=== PATIENT | male | born 1940 | race Asian ===

== ENCOUNTER → 2016-08-23 | Outpatient (CLI) | payer MEDICARE, OTHER ==
[~2016-08-23] MED LIST: ACET-784 PO; ALLO300 PO; AMLO2.5T PO; ASCO-360 PO; BENZ-26 PO; ERGO500050 PO; FINA5TAB41 PO; HYDR25 PO; INSLAN SQ; INSREG SQ; LEVO125T4 PO; LORA10TA7 PO; LOSA50TA37 PO; METF500T4 PO; MULT-1249 PO; SIMV20 PO; TAMS0.4C32 PO
[2016-08-23 10:54] LABS: CREATININE 2.22 mg/dL (0.60-1.30); POTASSIUM 4.6 mmol/L (3.5-5.1)
[2016-08-23 10:55] LABS: HEMOGLOBIN A1C 7.4 % (4.5-6.2)
== END | disposition home or self-care (01) ==
LOC: LABPV 09:00
PROVIDERS: ATTEND Internal Medicine Nephrology
DX: I12.9 Hypertensive chronic kidney disease with stage 1 through stage 4 chronic kidney disease, or unspecified chronic kidney disease (principal); N18.9 Chronic kidney disease, unspecified; E11.29 Type 2 diabetes mellitus with other diabetic kidney complication; E03.9 Hypothyroidism, unspecified; E78.5 Hyperlipidemia, unspecified
CPT/HCPCS: 83036; 84156

== ENCOUNTER → 2016-10-24 | Outpatient (CLI) | payer MEDICARE, OTHER ==
[~2016-10-24] MED LIST changes: -HYDR25 PO; +HYDR25TA84 PO; +SIMV-260 PO; -SIMV20 PO
[2016-10-24 11:46] LABS: HEMATOCRIT 32.1 % (41-53); HEMOGLOBIN 10.3 g/dL (13.5-17.5)
[2016-10-24 12:15] LABS: CALCIUM, TOTAL 8.8 mg/dL (8.8-10.5); CREATININE 2.3 mg/dL (0.60-1.30); POTASSIUM 5.3 mmol/L (3.5-5.1); THYROID STIMULATING HORMONE 0.1 uIU/mL (0.36-3.74)
== END | disposition home or self-care (01) ==
LOC: LABPV 10:53
PROVIDERS: ATTEND Internal Medicine Nephrology
DX: E11.22 Type 2 diabetes mellitus with diabetic chronic kidney disease (principal); N18.3 Chronic kidney disease, stage 3 (moderate); E03.9 Hypothyroidism, unspecified
CPT/HCPCS: 84443; 85014; 85018

== ENCOUNTER → 2019-02-25 | Outpatient (CLI) | payer MEDICARE, OTHER ==
[~2019-02-25] MED LIST changes: -AMLO2.5T PO; +AMLO2.5T4 PO; -BENZ-26 PO; +BENZ-51 PO; -LOSA50TA37 PO; +LOSA50TA64 PO; +METF-960 PO; -METF500T4 PO
[2019-02-25 15:23] LABS: HEMATOCRIT 28.5 % (41-53); HEMOGLOBIN 9.2 g/dL (13.5-17.5)
[2019-02-25 15:56] LABS: ALBUMIN 2.9 g/dL (3.4-5.0); BILIRUBIN,TOTAL 0.4 mg/dL (0.1-1.0); CALCIUM, TOTAL 8.7 mg/dL (8.8-10.5); CREATININE 5.01 mg/dL (0.60-1.30); POTASSIUM 4.3 mmol/L (3.5-5.1); THYROID STIMULATING HORMONE 9.34 uIU/mL (0.36-3.74); TOTAL PROTEIN, SERUM 6.3 g/dL (6.4-8.2)
[2019-02-25 16:01] LABS: CREATININE,URINE RANDOM 49.5 mg/dL (30.0-125.0); PROTEIN,URINE RANDOM 261 mg/dL (0-11.9)
[2019-02-25 17:31] LABS: APPEARANCE,URINE CLEAR (CLEAR)
[2019-02-25 17:32] LABS: BILIRUBIN,URINE NEGATIVE (NEGATIVE); GLUCOSE, URINE (UA) 100 mg/dL (NEGATIVE); KETONES,URINE NEGATIVE (NEGATIVE); LEUKOCYTE ESTERASE ,URINE NEGATIVE (NEGATIVE); NITRATE,URINE NEGATIVE (NEGATIVE); OCCULT BLOOD,URINE NEGATIVE (NEGATIVE); PROTEIN,URINE SEE CONFIRM (NEGATIVE); UROBILINOGEN,URINE 0.2 mg/dL (<=1.0)
[2019-02-25 17:34] LABS: RBC,URINE None Seen /HPF (0-2); SULFOSALICYLIC ACID,URINE 4+ (Negative)
[2019-02-25 17:35] LABS: BACTERIA,URINE None Seen /HPF (None Seen); SQUAMOUS EPITHELIAL CELL,UR Few /LPF (None Seen); WBC,URINE 0-2 /HPF (0-5)
== END | disposition home or self-care (01) ==
LOC: LABPV 14:29
PROVIDERS: ATTEND Internal Medicine Nephrology
DX: E55.9 Vitamin D deficiency, unspecified (principal); E11.22 Type 2 diabetes mellitus with diabetic chronic kidney disease; I12.9 Hypertensive chronic kidney disease with stage 1 through stage 4 chronic kidney disease, or unspecified chronic kidney disease; N18.9 Chronic kidney disease, unspecified; D63.1 Anemia in chronic kidney disease; E03.9 Hypothyroidism, unspecified
CPT/HCPCS: 82306; 82570; 83970; 84100; 84156; 84443; 85014; 85018

== ENCOUNTER → 2019-05-03 | Outpatient (CLI) | payer MEDICARE, OTHER ==
[~2019-05-03] MED LIST changes: +TAMS-13 PO; -TAMS0.4C32 PO
[2019-05-03 10:19] LABS: HEMATOCRIT 26.7 % (41-53); HEMOGLOBIN 8.9 g/dL (13.5-17.5)
[2019-05-03 10:41] LABS: CALCIUM, TOTAL 8.5 mg/dL (8.8-10.5); CHOL/HDL RATIO 3.1 (4.2-7.3); CREATININE 5.25 mg/dL (0.60-1.30); POTASSIUM 4.6 mmol/L (3.5-5.1); THYROID STIMULATING HORMONE 9.86 uIU/mL (0.36-3.74)
[2019-05-03 12:43] LABS: CREATININE,URINE 43.1 mg/dL (30.0-125.0)
[2019-05-03 12:47] LABS: CREATININE,SERUM FOR CRCL 5.25 mg/dL (0.60-1.30)
== END | disposition home or self-care (01) ==
LOC: LABPV 08:48
PROVIDERS: ATTEND Internal Medicine Nephrology
DX: E78.5 Hyperlipidemia, unspecified (principal); E03.9 Hypothyroidism, unspecified; D63.1 Anemia in chronic kidney disease; E11.22 Type 2 diabetes mellitus with diabetic chronic kidney disease; I12.0 Hypertensive chronic kidney disease with stage 5 chronic kidney disease or end stage renal disease; N18.5 Chronic kidney disease, stage 5
CPT/HCPCS: 81050; 82575; 83970; 84156; 84300; 84443; 85014; 85018

== ENCOUNTER → 2019-06-28 | Outpatient (CLI) | payer MEDICARE, OTHER ==
[~2019-06-28] MED LIST changes: +FINA-27 PO; -FINA5TAB41 PO; +LOSA-88 PO; -LOSA50TA64 PO
[2019-06-28 11:01] LABS: HEMATOCRIT 25.9 % (41-53); HEMOGLOBIN 8.5 g/dL (13.5-17.5)
[2019-06-28 11:14] LABS: CALCIUM, TOTAL 8.6 mg/dL (8.8-10.5); CREATININE 4.41 mg/dL (0.60-1.30); PHOSPHORUS 4.6 mg/dL (2.5-4.9); POTASSIUM 4.5 mmol/L (3.5-5.1)
[2019-06-28 11:34] LABS: FOLATE SERUM 15.6 ng/mL (5.4-)
[2019-06-28 12:52] LABS: % IRON SATURATION 28.9 % (30-44)
== END | disposition home or self-care (01) ==
LOC: LABPV 08:15
PROVIDERS: ATTEND Internal Medicine Nephrology
DX: N18.5 Chronic kidney disease, stage 5 (principal); D63.1 Anemia in chronic kidney disease; E55.9 Vitamin D deficiency, unspecified
CPT/HCPCS: 82306; 82607; 82746; 83540; 83550; 84100; 85014; 85018

== ENCOUNTER → 2019-07-23 | Outpatient (CLI) | payer MEDICARE, OTHER ==
[2019-07-23 10:07] LABS: HEMATOCRIT 25.8 % (41-53); HEMOGLOBIN 8.6 g/dL (13.5-17.5)
[2019-07-23 10:24] LABS: HEMOGLOBIN A1C 7.4 % (3.8-5.6)
[2019-07-23 10:37] LABS: CALCIUM, TOTAL 7.6 mg/dL (8.8-10.5); CREATININE 5.12 mg/dL (0.60-1.30); THYROID STIMULATING HORMONE 3.97 uIU/mL (0.36-3.74)
== END | disposition home or self-care (01) ==
LOC: LABPV 08:44
PROVIDERS: ATTEND Internal Medicine Nephrology
DX: E11.22 Type 2 diabetes mellitus with diabetic chronic kidney disease (principal); N18.5 Chronic kidney disease, stage 5; D63.1 Anemia in chronic kidney disease; E03.9 Hypothyroidism, unspecified
CPT/HCPCS: 83036; 84443; 85014; 85018

== ENCOUNTER → 2019-11-26 | Outpatient (CLI) | payer MEDICARE, OTHER ==
[~2019-11-26] MED LIST changes: -LOSA-88 PO; +LOSA50TA37 PO
[2019-11-26 11:50] LABS: HEMATOCRIT 31.6 % (41-53)
[2019-11-26 12:20] LABS: CHOL/HDL RATIO 2.7 (4.2-7.3); CREATININE 9.73 mg/dL (0.60-1.30); PHOSPHORUS 7.3 mg/dL (2.5-4.9); POTASSIUM 4.9 mmol/L (3.5-5.1); THYROID STIMULATING HORMONE 1.07 uIU/mL (0.36-3.74)
== END | disposition home or self-care (01) ==
LOC: LABPV 07:59
PROVIDERS: ATTEND Internal Medicine Nephrology
DX: E11.22 Type 2 diabetes mellitus with diabetic chronic kidney disease (principal); N18.5 Chronic kidney disease, stage 5; E03.9 Hypothyroidism, unspecified; D63.1 Anemia in chronic kidney disease
CPT/HCPCS: 84100; 84443; 85014; 85018